=== PATIENT | male | born 1995 | race Caucasian/White ===

== ENCOUNTER 2018-06-26 20:15 | Emergency (ER) | payer OTHER ==
[2018-06-26 20:21] VITALS: BP 121/70; PULSE 96; TEMP 98.1; BMI 28.3
--- NOTE | 2018-06-26 20:22 | PDOC ---
Rapid Medical Evaluation Time Seen by Provider: 06/26/18 20:19 Medical Evaluation: 06/26/18 20:19 I have performed a brief in-person evaluation of this patient. The patient presents with a chief complaint of: dog bite vs scratch to L forearm from a domesticated dog today. 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 Pt has no pmhx and states he does not know if his tetanus is UTD Pertinent physical exam findings:Dressing in place to LUE, will defer exam to ED provider I have ordered the following:tetanus The patient will proceed to the ED for further evaluation. Discharge Disposition - Diagnosis Dog bite Qualifiers: Encounter type: initial encounter Qualified Code(s): W54.0XXA - Bitten by dog, initial encounter - Referrals - Patient Instructions - Post Discharge Activity
[2018-06-26] MEDS ORDERED: DIPHTH,PERTUSS(ACELL),TET 0.5 ML DISP.SYRIN IM ONE ×2 (21:10→21:16)
--- NOTE | 2018-06-26 21:16 | PDOC ---
History of Present Illness - General Chief Complaint: Bite Stated Complaint: DOG BITE Time Seen by Provider: 06/26/18 20:19 - History of Present Illness Initial Comments: 06/26/18 21:10 23-year-old male without comorbidities presents for evaluation of a dog bite. The patient states he was walking his dog when unknown dog attacked his dog while breaking up the fight the patient was bitten in the left arm. He is unsure of the dog or who the traffic signal technician's however the police did verify the vaccination status of the dog that bit the patient. The patient is unsure of his tetanus status Past History - Past Medical History Allergies/Adverse Reactions: Allergies Allergy/AdvReac Type Severity Reaction Status Date / Time No Known Allergies Allergy Verified 06/26/18 20:46 Home Medications: Ambulatory Orders Amox-Tr/K Cl [Augmentin - 875Mg Tablet] 1 tab PO BID #20 tablet 06/26/18 COPD: No - Suicide/Smoking/Psychosocial Hx Smoking History: Never smoked Review of Systems - Review of Systems Integumentary: Yes: See HPI *Physical Exam - Vital Signs Last Vital Signs Temp Pulse Resp BP Pulse Ox 98.1 F 96 H 18 121/70 99 06/26/18 20:18 06/26/18 20:18 06/26/18 20:18 06/26/18 20:18 06/26/18 20:18 - Physical Exam Comments: 06/26/18 21:14 There are superficial lacerations on the left forearm on the anterior and posterior aspect. There are no appreciable puncture wounds. There are no gross sensorimotor deficits. He is neurovascularly intact. Medical Decision Making - Medical Decision Making 06/26/18 21:15 The required paperwork for dog bites an animal bites has been filled out, the patient was given a tetanus shot and Augmentin for prophylactics. Follow-up with orthopedic surgery was also given. This was done for wound evaluation. Also instructed the patient to wash with soap and water and leave the area open to air 06/26/18 21:16 X-rays were deferred. There is no indication of a puncture wound I do not suspect a foreign body. I will forego the radiation *DC/Admit/Observation/Transfer Diagnosis at time of Disposition: Dog bite Qualifiers: Encounter type: initial encounter Qualified Code(s): W54.0XXA - Bitten by dog, initial encounter - Discharge Dispostion Disposition: HOME Condition at time of disposition: Stable Decision to Admit order: No - Prescriptions Prescriptions: Amox-Tr/K Cl [Augmentin - 875Mg Tablet] 1 tab PO BID #20 tablet - Referrals Referrals: Damaso Sumner DO [Staff Physician] - - Patient Instructions Printed Discharge Instructions: How to Care for a Domestic Animal Bite Additional Instructions: Return to the emergency room for worsening symptoms or any indication of infection such as redness increasing pain swelling or drainage around the area. Please take the antibiotics as directed for the next 10 days. Your tetanus shot was updated today. Local wound care to the areas of the dog bite should include washing with soap and water multiple times a day and leave the the areas open to air. Follow-up with orthopedic surgery for wound checks in the next 1-2 days for further evaluation and treatment options. - Post Discharge Activity
== END 2018-06-26 21:24 | disposition home or self-care (01) ==
LOC: JERFT 20:15
PROC: 3E0234Z Introduction of Serum, Toxoid and Vaccine into Muscle, Percutaneous Approach (ICD-10-PCS; principal; 2018-06-26)
DX: S50.872A Other superficial bite of left forearm, initial encounter (principal); W54.0XXA Bitten by dog, initial encounter; Y93.89 Activity, other specified; Y92.89 Other specified places as the place of occurrence of the external cause; Y99.8 Other external cause status
CPT/HCPCS: 90471; 90715; 99281-25

== ENCOUNTER 2018-07-04 21:37 | Emergency (ER) | payer OTHER ==
[2018-07-04 21:42] VITALS: BP 130/61; PULSE 69; TEMP 97.8; BMI 26.7
[2018-07-04] MEDS ORDERED: TETRACAINE 0.5% OPHTH SOLN 2 ML BOTTLE ONE (22:23)
--- NOTE | 2018-07-04 22:31 | PDOC ---
History of Present Illness - General Chief Complaint: Eye Problem Stated Complaint: PARTICLE IN LT. EYE Time Seen by Provider: 07/04/18 22:21 - History of Present Illness Initial Comments: 07/04/18 22:28 23-year-old fully immunized male without comorbidities presents for evaluation of left eye irritation after he felt a piece of wood dust enter his eye today Past History - Past Medical History Allergies/Adverse Reactions: Allergies Allergy/AdvReac Type Severity Reaction Status Date / Time No Known Allergies Allergy Verified 07/04/18 21:40 Home Medications: Ambulatory Orders Amox-Tr/K Cl [Augmentin - 875Mg Tablet] 1 tab PO BID #20 tablet 06/26/18 Tobramycin 0.3% Ophth Soln [Tobrex Ophthalmic Solution -] 1 drop OS Q4HWA #1 bottle 07/04/18 COPD: No - Suicide/Smoking/Psychosocial Hx Smoking History: Never smoked Review of Systems - Review of Systems HEENTM: Yes: See HPI, Eye Pain, Blurred Vision, Tearing *Physical Exam - Vital Signs Last Vital Signs Temp Pulse Resp BP Pulse Ox 97.8 F 69 18 130/61 100 07/04/18 21:40 07/04/18 21:40 07/04/18 21:40 07/04/18 21:40 07/04/18 21:40 - Physical Exam Comments: 07/04/18 22:29 HEAD: NC/AT EYES: Conjuntiva clear on the right injected on the left, fluorescein stain on the left eye shows no evidence of foreign body or corneal abrasion. Conjunctivae is injected MS: Full ROM in all joints without edema NEUROLOGIC: No gross sensory or motor deficits, NVID SKIN: Normal color and temperature no lesions or rashes Medical Decision Making - Medical Decision Making 07/04/18 22:29 I do not appreciate a corneal abrasion or foreign body. His eye is injected I will place him on antibiotics follow up with ophthalmology tomorrow *DC/Admit/Observation/Transfer Diagnosis at time of Disposition: Irritation of left eye - Discharge Dispostion Disposition: HOME Condition at time of disposition: Stable Decision to Admit order: No - Prescriptions Prescriptions: Tobramycin 0.3% Ophth Soln [Tobrex Ophthalmic Solution -] 1 drop OS Q4HWA #1 bottle - Referrals Referrals: Evelyne Pagan MD [Staff Physician] - - Patient Instructions Additional Instructions: Use the antibiotic eyedrops as directed. Follow-up with ophthalmology tomorrow without fail for further evaluation and treatment options. Return to the emergency room for worsening symptoms. - Post Discharge Activity
== END 2018-07-04 22:34 | disposition home or self-care (01) ==
LOC: JERFT 21:37
DX: H57.89 Other specified disorders of eye and adnexa (principal)
CPT/HCPCS: 99281-25